=== PATIENT | female | born 1970 | race Caucasian/White ===

== ENCOUNTER → 2024-01-02 11:29 | Outpatient (REF) | payer BC, SELFPAY ==
[2024-01-02 12:36] LABS: ALT (SGPT) 20 U/L (0-35); AST (SGOT) 20 U/L (14-36); Albumin 4.2 g/dl (3.5-5.0); Alkaline Phosphatase 55 U/L (38-126); Blood Urea Nitrogen 14 mg/dl (7-17); Calcium 9.5 mg/dl (8.4-10.2); Carbon Dioxide 29 mmol/L (22-30); Chloride 98 mmol/L (98-107); Glucose 88 mg/dl (70-99); HDL Cholesterol 74 mg/dl; LDL Cholesterol, Calculated 129 mg/dl; Potassium 4.1 mmol/L (3.5-5.1); Sodium 137 mmol/L (135-145); Total Cholesterol 241 mg/dl (50-199); Total Protein 6.9 g/dl (6.3-8.2); Triglyceride 193 mg/dl (10-149); Very Low Density Lipoprotein 38 mg/dl (0-30); eGFR > 60.00
[2024-01-03 11:06] LABS: Glycohemoglobin (HgbA1c) 5.3 % (4.0-5.6)
== END ==
LOC: REG 11:29
PROVIDERS: ATTENDING PHYSICIAN Family Medicine
DX: E78.5 Hyperlipidemia, unspecified (principal); E66.09 Other obesity due to excess calories
CPT/HCPCS: 36415; 80053; 80061; 83036

== ENCOUNTER → 2024-02-17 14:00 | Outpatient (REF) | payer BC, SELFPAY | LOC: RAD 14:00 | PROVIDERS: ATTENDING PHYSICIAN Nurse Practitioner Adult Health; FAMILY PHYSICIAN Family Medicine | DX: N93.9 Abnormal uterine and vaginal bleeding, unspecified (principal) | CPT/HCPCS: 76830; 76856 ==

== ENCOUNTER → 2024-03-06 15:06 | Outpatient (REF) | payer BC, SELFPAY | LOC: RAD 15:06 | PROVIDERS: ATTENDING PHYSICIAN Family Medicine | DX: E78.5 Hyperlipidemia, unspecified (principal); E27.8 Other specified disorders of adrenal gland | CPT/HCPCS: 74160; 75571; Q9967 ==

== ENCOUNTER → 2024-04-09 14:37 | Outpatient (REF) | payer BC, SELFPAY | LOC: WDC 14:37 | PROVIDERS: ATTENDING PHYSICIAN Nurse Practitioner Adult Health; FAMILY PHYSICIAN Family Medicine | DX: Z12.31 Encounter for screening mammogram for malignant neoplasm of breast (principal) | CPT/HCPCS: 77063; 77067 ==

== ENCOUNTER 2025-01-20 17:10 | Inpatient (IN) | payer BC, SELFPAY ==
[2025-01-12 08:49] LABS: Urine Albumin 2+ (Neg - Trace); Urine Bilirubin Negative (Negative); Urine Character Slightly Cloudy (Clear); Urine Color Yellow; Urine Glucose Negative (Negative); Urine Ketone Negative (Negative); Urine Leukocyte Negative (Negative); Urine Nitrite Negative (Negative); Urine Occult Blood 3+ (Negative); Urine Specific Gravity 1.025 (<1.030); Urine Urobilinogen Negative (Neg - 1+)
[2025-01-12 08:56] LABS: Hematocrit 41.4 % (37.0-47.0); Hemoglobin 13.7 g/dL (12.0-16.0); Mean Corp Hgb Conc. 33.1 g/dL (33.0-37.0); Mean Corpuscular Hgb 32.3 pg (27.0-31.0); Mean Corpuscular Volume 97.6 fL (81.0-99.0); Mean Platelet Volume 10.4 fL (7.4-10.4); Platelet Count 276 10^3/uL (130-400); Red Blood Cell Count 4.24 10^6/uL (4.20-5.40); Red Cell Dist. Width 13.4 % (11.5-14.5); White Blood Cell Count 8.7 10^3/uL (4.8-10.8)
[2025-01-12 08:59] LABS: Urine Squamous Cell >30 /LPF (Few)
[2025-01-12 09:00] LABS: Urine Bacteria Moderate (Negative)
[2025-01-12 09:01] LABS: Urine Red Blood Cell 0-2 /HPF (0-2)
[2025-01-12 09:02] LABS: Urine Mucus Few
[2025-01-12 09:44] LABS: ALT (SGPT) 22 U/L (0-35); AST (SGOT) 22 U/L (14-36); Albumin 4.7 g/dl (3.5-5.0); Alkaline Phosphatase 70 U/L (38-126); Blood Urea Nitrogen 17 mg/dl (7-17); Calcium 9.3 mg/dl (8.4-10.2); Carbon Dioxide 30 mmol/L (22-30); Chloride 98 mmol/L (98-107); Glucose 92 mg/dl (70-99); HDL Cholesterol 78 mg/dl; LDL Cholesterol, Calculated 96 mg/dl; Potassium 4.1 mmol/L (3.5-5.1); Sodium 138 mmol/L (135-145); Total Bilirubin 1.1 mg/dl (0.2-1.3); Total Cholesterol 215 mg/dl (50-199); Total Protein 7.1 g/dl (6.3-8.2); Triglyceride 206 mg/dl (10-149); Very Low Density Lipoprotein 41 mg/dl (0-30); eGFR > 60.00
[2025-01-12 09:59] LABS: Vitamin D, 25-OH*** 27.6 ng/mL (30-80)
[2025-01-12 10:12] LABS: TSH 2.31 uIU/ml (0.47-4.68)
[2025-01-12 10:25] LABS: Glycohemoglobin (HgbA1c) 5.4 % (4.0-5.6)
[2025-01-12 14:00] VITALS: BMI 34.5
[2025-01-20] VITALS (16 sets, daily range): BP systolic 133–155; BP diastolic 78–106; BMI 34.5
[2025-01-20] MEDS: TYLENOL 1000 MG PO (11:29)
[2025-01-20] MEDS: NORMOSOL-R/PLASMALYTE-A 1000 IV ×2 (11:29→20:28)
[2025-01-20] MEDS: TRANSDERM-SCOP 1 PATCH TRANSDERM (11:29)
--- NOTE | 2025-01-20 17:06 | W.IMMPOSTOP ---
Surgical Immed Post Op Note
-
Primary Surgeon: Roberto
Assisting Surgeon: LISANDRO Brown
Pre-op Diagnosis: Paraesophageal hernia
Post-op Diagnosis: Paraesophageal hernia
Procedure Performed: Laparoscopic paraesophageal hernia repair and Toupet fundoplication with intra-op EGD
Anesthesia Type: General
Specimen / Cultures: None
Estimated Blood Loss: 23 cc
Complications: None
Operative Findings:
1. Large type III PEH containing 100% of stomach and large fat pad, thin hernia sac
2. > 3 cm esophageal mobilization, R chest pleura violated, bl vagi identified
3. Crural closure with 0 silk (3 posterior and 1 anterior)
4. 2 cm lose floppy fundoplication over 56 fr Bougie
5. Post-repair EGD with no trauma, stricturing and appropriately oriented wrap
[2025-01-20] MEDS: DEMEROL 12.5 MG IV ×2 (17:24→17:36)
[2025-01-20] MEDS: OFIRMEV 100 IV (20:26)
--- NOTE | 2025-01-20 21:47 | TRANSFER ---
Report received from [employer] - received pt in bed at 1910 s/p Lap paraesophageal hernia repair w fundo and intra op EGD, x6 lap sites to abd w glue ZAHIRA. pt denied incisional pain, did c/o gas pains. Drowsy but arousable to verbal. Able to make
all needs known. VS WNL. Bed in lowest position, call dai within reach. Family at the bedside.
[2025-01-20] MEDS: MYLICON 80 MG PO (23:56)
[2025-01-21] MEDS: OFIRMEV 100 IV ×3 (01:57→14:13)
[2025-01-21 02:15] VITALS: BP 145/92
--- NOTE | 2025-01-21 03:44 | PTCARENOTE ---
Pt ambulated in hallway without incident. pt belched multiple times, denied pain. Assessment ongoing.
[2025-01-21 06:36] LABS: Hemoglobin 12.7 g/dL (12.0-16.0); Mean Corp Hgb Conc. 32.6 g/dL (33.0-37.0); Mean Corpuscular Hgb 32.2 pg (27.0-31.0); Mean Platelet Volume 10.3 fL (7.4-10.4); Platelet Count 246 10^3/uL (130-400); Red Blood Cell Count 3.94 10^6/uL (4.20-5.40); Red Cell Dist. Width 13.5 % (11.5-14.5); White Blood Cell Count 13.7 10^3/uL (4.8-10.8)
[2025-01-21 07:00] LABS: Blood Urea Nitrogen 11 mg/dl (7-17); Calcium 8.1 mg/dl (8.4-10.2); Carbon Dioxide 27 mmol/L (22-30); Chloride 99 mmol/L (98-107); Estimated Creatinine Clearance 123 ml/min; Glucose 94 mg/dl (70-99); Potassium 4.2 mmol/L (3.5-5.1); Sodium 135 mmol/L (135-145); eGFR > 60.00
[2025-01-21] MEDS: NORMOSOL-R/PLASMALYTE-A 1000 IV ×2 (07:01→13:31)
[2025-01-21 07:20] VITALS: BP 141/97
--- NOTE | 2025-01-21 08:08 | W.PN.GS2 ---
Today's Communication / Plan
-
-- Clears ADAT to fulls
-- Maintain IVF for today, consider decrease pending PO intake
-- Pain control: Tylenol, Toradol, liquid Oxycodone, IV Dilaudid PRN
-- Home medications
-- DVT: Lovenox
Assessment / Plan
-
Patient is a 54 yo F POD#1 s/p laparoscopic paraesophageal hernia repair with Toupet fundoplication and intra-operative EGD
AVSS, weaned off supplemental O2
Labs reviewed, unremarkable
EKG overnight reviewed
Chest and back discomfort post PEH repair, especially given the significant size of her hernia, is not unexpected. Less likely a cardiopulmonary source, continue to monitor and further workup as needed.
Apical RIGHT capnothorax expected given entry into the chest operatively, patient asymptomatic and weaned off supplemental O2 this should reabsorb quickly (discussed with patient)
No clinical reports of dysphagia. Plan to advance diet throughout the day.
-- Clears ADAT to fulls
-- Maintain IVF for now, consider decrease pending PO intake
-- Pain control: Tylenol, Toradol, liquid Oxycodone, IV Dilaudid PRN
-- Home medications
-- OOB/ambulate, SCDs at all times given h/o DVT
-- DVT: Lovenox
-- GI: None needed given fundoplication
Subjective Data
-
Date of Service: January 21, 2025
Reports chest discomfort and pain radiating to the back. Denies any worsening SOB. Denies any nausea or vomiting, no symptoms of dysphagia. No abdominal discomfort. Voiding. Ambulating.
Objective Data
-
Intake and Output
01/20/25 01/21/25 01/22/25
06:59 06:59 06:59
Intake Total 1435 / 1435
Output Total 200 / 200
Balance 1235 / 1235
Intake:
Oral fluids 60 / 60
IV fluids (Total) 1175 / 1175
Normosol 200 / 200
IV piggybacks 200 / 200
Output:
Urine, Marcano 200 / 200
Other:
Number of approximated MODERATE 3
amounts of urine
Vital Signs
Temp Pulse Resp BP Pulse Ox
98.1 F 89 18 141/97 97
01/21/25 07:20 01/21/25 07:20 01/21/25 07:20 01/21/25 07:20 01/21/25 07:20
Lab Results
01/21/25 05:18
01/21/25 05:18
Calcium 8.1 mg/dl (8.4-10.2) L 01/21/25 05:18
Total Bilirubin 1.1 mg/dl (0.2-1.3) 01/12/25 07:51
AST 22 U/L (14-36) 01/12/25 07:51
ALT 22 U/L (0-35) 01/12/25 07:51
Alkaline Phosphatase 70 U/L (38-126) 01/12/25 07:51
Total Protein 7.1 g/dl (6.3-8.2) 01/12/25 07:51
Albumin 4.7 g/dl (3.5-5.0) 01/12/25 07:51
Physical Exam
-
Gen: NAD
Abd: soft, mild tenderness, ND, non-peritoneal, incisions c/d/i - no erythema, ecchymosis or drainage
Patient has a marcano catheter: No
Patient has a central line: No
[2025-01-21] MEDS: ORETIC 12.5 MG PO (08:56)
[2025-01-21] MEDS: ZESTRIL 20 MG PO (08:56)
[2025-01-21] MEDS: DILAUDID 0.5 MG IV ×2 (08:56→20:58)
[2025-01-21 12:32] VITALS: BP 128/81
[2025-01-21] MEDS: TORADOL 15 MG IV (13:31)
[2025-01-21 15:25] VITALS: BP 124/79
[2025-01-21] MEDS: COLACE 100 MG PO (17:39)
[2025-01-21] MEDS: LOVENOX 40 MG SC (17:39)
[2025-01-21 23:38] VITALS: BP 123/81
[2025-01-22] MEDS: TORADOL 15 MG IV (00:01)
[2025-01-22] MEDS: NORMOSOL-R/PLASMALYTE-A 1000 IV (03:46)
[2025-01-22] MEDS: DILAUDID 0.5 MG IV ×6 (04:58→23:12)
[2025-01-22 06:37] LABS: Hematocrit 37.3 % (37.0-47.0); Hemoglobin 12.3 g/dL (12.0-16.0); Mean Corpuscular Hgb 32.4 pg (27.0-31.0); Mean Corpuscular Volume 98.2 fL (81.0-99.0); Mean Platelet Volume 10.4 fL (7.4-10.4); Platelet Count 221 10^3/uL (130-400); Red Cell Dist. Width 13.9 % (11.5-14.5); White Blood Cell Count 9.7 10^3/uL (4.8-10.8)
[2025-01-22 07:11] VITALS: BP 145/97
--- NOTE | 2025-01-22 07:16 | W.PN.GS2 ---
Today's Communication / Plan
-
-- Soft food diet
-- Resume Eliquis on DC
-- DC today
Assessment / Plan
-
Patient is a 54 yo F POD#2 s/p laparoscopic paraesophageal hernia repair with Toupet fundoplication and intra-operative EGD
AVSS
Labs reviewed, unremarkable
No concerns. DC today.
-- Soft diet, dietary education provided
-- HLIV
-- Pain control: Tylenol, Toradol, liquid Oxycodone, IV Dilaudid PRN
-- Home medications
-- OOB/ambulate, SCDs at all times given h/o DVT
-- DVT: Lovenox, resume Eliquis on DC tonight
-- GI: None needed given fundoplication
Subjective Data
-
Date of Service: January 22, 2025
No issues or complaints. No reports of dysphagia. No nausea or vomiting. Chest and shoulder pain has significantly improved and basically resolved. Ambulating. Voiding. Afebrile.
Objective Data
-
Intake and Output
01/21/25 01/22/25 01/23/25
06:59 06:59 06:59
Intake Total 1435 / 1435 2160 / 2160
Output Total 200 / 200
Balance 1235 / 1235 2160 / 2160
Intake:
Oral fluids 60 / 60 960 / 960
IV fluids (Total) 1175 / 1175 1200 / 1200
Normosol 200 / 200
IV piggybacks 200 / 200
Output:
Urine, Marcano 200 / 200
Other:
Number of approximated MODERATE 3 3
amounts of urine
Vital Signs
Temp Pulse Resp BP Pulse Ox
97.9 F 67 18 123/81 93
01/21/25 23:38 01/21/25 23:38 01/21/25 23:38 01/21/25 23:38 01/22/25 01:35
Lab Results
01/22/25 05:41
Calcium 8.1 mg/dl (8.4-10.2) L 01/21/25 05:18
Total Bilirubin 1.1 mg/dl (0.2-1.3) 01/12/25 07:51
AST 22 U/L (14-36) 01/12/25 07:51
ALT 22 U/L (0-35) 01/12/25 07:51
Alkaline Phosphatase 70 U/L (38-126) 01/12/25 07:51
Total Protein 7.1 g/dl (6.3-8.2) 01/12/25 07:51
Albumin 4.7 g/dl (3.5-5.0) 01/12/25 07:51
Physical Exam
-
Gen: NAD
AbdZ: soft, NT/ND, non-peritoneal, incisions c/d/i - no erythema, ecchymosis or drainage
Patient has a marcano catheter: No
Patient has a central line: No
[2025-01-22 07:38] LABS: Blood Urea Nitrogen 9 mg/dl (7-17); Calcium 8.2 mg/dl (8.4-10.2); Carbon Dioxide 26 mmol/L (22-30); Chloride 102 mmol/L (98-107); Estimated Creatinine Clearance 123 ml/min; Glucose 84 mg/dl (70-99); Sodium 134 mmol/L (135-145); eGFR > 60.00
[2025-01-22 08:40] VITALS: BP 169/114
[2025-01-22] MEDS: ATIVAN 0.5 MG IV (09:00)
[2025-01-22] MEDS: NSS (PRESERVATIVE FREE) 0.25 ML IV (09:01)
[2025-01-22] MEDS: ORETIC 12.5 MG PO (09:07)
[2025-01-22] MEDS: ZESTRIL 20 MG PO (09:08)
--- NOTE | 2025-01-22 10:56 | W.PN.SURGUPD ---
Surgical Update
Surgical Update
S/B: Patient with significant pain into her right chest up into the shoulder earlier this am.
A: EKG without change, NSR. HTN with episode. Suspect esophageal spasm. IV Ativan given at time of episode with complete relief in symptoms.
P: Continue with dietary advancement to soft diet. Levsin prn for further symptoms. Tentative d/c later today vs tomorrow pending diet tolerance and pain control.
[2025-01-22] MEDS: LEVSIN 0.125 MG PO (12:36)
--- NOTE | 2025-01-22 13:43 | CM ---
Met with pt at bedside
Pt reports she lives with her in a 2 story home; 1 step to enter, 15 steps to 2nd fl. + 1/2 bath on FF
Independent, employed, drives
DME - none
SNF/HH - denies past hx
Has ride at d/c
PCP - Joshua Goldberg
Pharm - [facility] in [place]
Plan - anticipate home no needs
[2025-01-22 15:12] VITALS: BP 151/94
[2025-01-22] MEDS: D5/0.45%NSS with KCL 20 MEQ 1000 IV (16:58)
[2025-01-22] MEDS: COLACE 100 MG PO (17:44)
[2025-01-22 19:00] VITALS: BP 150/102
[2025-01-22] MEDS: ELIQUIS 2.5 MG PO (19:47)
[2025-01-22 23:00] VITALS: BP 142/88
[2025-01-23] MEDS: TORADOL 15 MG IV ×2 (01:50→07:42)
[2025-01-23] MEDS: D5/0.45%NSS with KCL 20 MEQ 1000 IV (05:04)
[2025-01-23] MEDS: LEVSIN 0.125 MG PO (05:05)
[2025-01-23 07:25] VITALS: BP 127/89
[2025-01-23] MEDS: ORETIC 12.5 MG PO (07:42)
[2025-01-23] MEDS: ELIQUIS 2.5 MG PO (07:42)
[2025-01-23] MEDS: ZESTRIL 20 MG PO (07:44)
[2025-01-23 07:49] LABS: Hematocrit 40.9 % (37.0-47.0); Hemoglobin 13.1 g/dL (12.0-16.0); Mean Corpuscular Hgb 31.5 pg (27.0-31.0); Mean Corpuscular Volume 98.3 fL (81.0-99.0); Mean Platelet Volume 10.2 fL (7.4-10.4); Platelet Count 244 10^3/uL (130-400); Red Blood Cell Count 4.16 10^6/uL (4.20-5.40); Red Cell Dist. Width 13.7 % (11.5-14.5); White Blood Cell Count 8.1 10^3/uL (4.8-10.8)
--- NOTE | 2025-01-23 11:11 | W.PN.GS2 ---
Today's Communication / Plan
-
Dispo planning
Assessment / Plan
-
Patient is a 54 yo F POD#3 s/p laparoscopic paraesophageal hernia repair with Toupet fundoplication and intra-operative EGD
AVSS
Labs reviewed, unremarkable
Pain yesterday up into right shoulder with tachycardia during episodes, now resolved
Back on Eliquis with no bleeding noted, h/h stable
No concerns. DC today.
-- Soft diet, dietary education provided
-- HLIV
-- Pain contro
-- Home medications
-- OOB/ambulate, SCDs at all times given h/o DVT
D/C to home
Subjective Data
-
Date of Service: January 23, 2025
Patient seen and examined at bedside with Dr. Chapa. Tolerating diet. Denies n/v. Pain much improved.
Objective Data
-
Intake and Output
01/22/25 01/23/25 01/24/25
06:59 06:59 06:59
Intake Total 2160 / 2160 2580 / 2580
Balance 2160 / 2160 2580 / 2580
Intake:
Oral fluids 960 / 960 1680 / 1680
IV fluids (Total) 1200 / 1200 900 / 900
Other:
Number of approximated MODERATE 3 3
amounts of urine
Vital Signs
Temp Pulse Resp BP Pulse Ox
98.2 F 79 16 127/89 93
01/23/25 07:25 01/23/25 07:44 01/23/25 07:25 01/23/25 07:44 01/23/25 07:25
Lab Results
01/23/25 07:17
01/22/25 05:41
Calcium 8.2 mg/dl (8.4-10.2) L 01/22/25 05:41
Total Bilirubin 1.1 mg/dl (0.2-1.3) 01/12/25 07:51
AST 22 U/L (14-36) 01/12/25 07:51
ALT 22 U/L (0-35) 01/12/25 07:51
Alkaline Phosphatase 70 U/L (38-126) 01/12/25 07:51
Total Protein 7.1 g/dl (6.3-8.2) 01/12/25 07:51
Albumin 4.7 g/dl (3.5-5.0) 01/12/25 07:51
Physical Exam
-
Gen: NAD
AbdZ: soft, NT/ND, non-peritoneal, incisions c/d/i - no erythema, ecchymosis or drainage
Patient has a marcano catheter: No
Patient has a central line: No
[2025-01-23 12:02] VITALS: BP 148/96
--- NOTE | 2025-01-23 12:05 | CM ---
Pt for discharge today
Pt reports has ride home
Plan - home no needs
--- NOTE | 2025-01-23 14:27 | W.DCSUMMARY ---
Discharge Summary
Discharge Data
Date of Admission: 01/20/25
Date of Discharge: 01/23/25
-
Pending Results: No
Hospital Course
54 yo female who presented for management of a paraesophageal hernia with laparoscopic hernia repair and Toupet fundoplication and intraoperative EGD. She tolerated the procedure well and diet was able to be advanced to soft prior to discharge which
was well tolerated. She was discharged to home once pain was able to be controlled well with oral analgesics. Outpatient follow up planned in the coming weeks.
Discharge Plan
-
Patient Disposition: Home (Routine Discharge)
Discharge Diagnosis/Procedures: Laparoscopic paraesophageal hernia repair with Toupet fundoplication and EGD
Condition: Good
Diet: Other diet
Additional Diets: Follow a soft food diet. Eat small frequent meals. Chew food thoroughly. Avoid large cuts of meat, breads, or dry pastas. Avoid drinking with a straw. Avoid carbonated beverages.
Activity: No strenuous activity
Driving Restrictions: No driving if too sore or taking narcotics.
Bathing Restrictions: OK to Shower
Wound Care: Keep incisions clean and dry. Glue will flake off in 2 to 3 weeks. Stitches will dissolve. Use ice to the abdomen to reduce any bruising or swelling.
Activity Restrictions/Additional Instructions:
Call for fevers (>100.5), nausea or vomiting, worsening issues with swallowing, chest or abdominal pain, calf pain or shortness of breath
Referrals:
Joshua Goldberg DO [Family Provider] -
Santiago Mejia MD [Active] - in three to four weeks
Prescriptions:
New
acetaminophen 325 mg tablet
650 mg PO Q4HPRN PRN (Reason: mild pain) Qty: 1 0RF
ibuprofen 200 mg tablet
400 - 600 mg PO Q6HPRN PRN (Reason: moderate pain) Qty: 1 0RF
oxycodone 5 mg tablet
5 mg PO Q4HPRN PRN (Reason: breakthrough/severe pain) Qty: 10 0RF
hyoscyamine sulfate [Oscimin] 0.125 mg tablet
0.125 mg PO QID PRN (Reason: pain shoulders/chest) Qty: 20 0RF
Continued
lisinopril 20 mg Tablet
20 mg PO DAILY
Glucosamine Complex-MSM Capsule
3 cap PO DAILY
hydrochlorothiazide 12.5 mg Tablet
12.5 mg PO DAILY
cholecalciferol (vitamin D3) [Vitamin D3] 50 mcg (2,000 unit) Tablet
100 mcg PO DAILY
omega 3-qwi-twn-fish oil [Fish Oil] 1,000 (120-180) mg Capsule
1 cap PO DAILY
Eliquis 2.5 mg Tablet
2.5 mg PO BID
Probiotic
1 cap PO DAILY
Discharge Orders:
Discharge Patient (As Directed); Ordered 01/23/25
Ordered By: Melony Oleary
Discharge Date and Time
Discharge Date/Time: 01/23/25 13:19
Print Language: CITIZEN OF [place]
== END 2025-01-23 13:19 | disposition home or self-care (01) | DRG 327 ==
LOC: 2 SOUTH 17:10
PROVIDERS: Registered Nurse; ADMITTING PHYSICIAN Surgery; FAMILY PHYSICIAN Family Medicine
PROC: 0DJ08ZZ Inspection of Upper Intestinal Tract, Via Natural or Artificial Opening Endoscopic (ICD-10-PCS; 2025-01-22)
PROC: 0DV44ZZ Restriction of Esophagogastric Junction, Percutaneous Endoscopic Approach (ICD-10-PCS; 2025-01-22)
PROC: 0BQT4ZZ Repair Diaphragm, Percutaneous Endoscopic Approach (ICD-10-PCS; 2025-01-22)
DX: K44.9 Diaphragmatic hernia without obstruction or gangrene (principal); J95.71 Accidental puncture and laceration of a respiratory system organ or structure during a respiratory system procedure; E66.9 Obesity, unspecified; Z68.34 Body mass index [BMI] 34.0-34.9, adult; Z79.01 Long term (current) use of anticoagulants; Z88.0 Allergy status to penicillin; Y83.8 Other surgical procedures as the cause of abnormal reaction of the patient, or of later complication, without mention of misadventure at the time of the procedure
CPT/HCPCS: 36415; 71045; 80048; 80053; 80061; 81003; 81015; 82306; 83036; 84443; 85027; 93005

== ENCOUNTER → 2025-04-15 14:51 | Outpatient (REF) | payer BC, SELFPAY | LOC: WDC 14:51 | PROVIDERS: ATTENDING PHYSICIAN Nurse Practitioner Adult Health; FAMILY PHYSICIAN Family Medicine | DX: Z12.31 Encounter for screening mammogram for malignant neoplasm of breast (principal) | CPT/HCPCS: 77063; 77067 ==

== ENCOUNTER → 2025-04-15 15:35 | Outpatient (REF) | payer BC, SELFPAY | LOC: RAD 15:35 | PROVIDERS: ATTENDING PHYSICIAN Family Medicine | DX: M25.551 Pain in right hip (principal); M25.552 Pain in left hip | CPT/HCPCS: 73523 ==

== ENCOUNTER → 2025-08-06 10:18 | Outpatient (REF) | payer BC, SELFPAY ==
[2025-08-06 11:24] LABS: Hematocrit 42.3 % (37.0-47.0); Hemoglobin 13.7 g/dL (12.0-16.0); Mean Corp Hgb Conc. 32.4 g/dL (33.0-37.0); Mean Corpuscular Volume 97.7 fL (81.0-99.0); Nucleated Red Blood Cells % 0 %; Platelet Count 255 10^3/uL (130-400); Red Cell Dist. Width 13.4 % (11.5-14.5)
[2025-08-06 11:37] LABS: ALT (SGPT) 34 U/L (0-35); AST (SGOT) 27 U/L (14-36); Albumin 4.7 g/dl (3.5-5.0); Alkaline Phosphatase 60 U/L (38-126); Total Protein 7.5 g/dl (6.3-8.2)
== END ==
LOC: REG 10:18
PROVIDERS: ATTENDING PHYSICIAN Nurse Practitioner; FAMILY PHYSICIAN Family Medicine
DX: K76.0 Fatty (change of) liver, not elsewhere classified (principal); D64.9 Anemia, unspecified
CPT/HCPCS: 36415; 80076; 85025

== ENCOUNTER → 2025-10-15 07:47 | Outpatient (REF) | payer BC, SELFPAY ==
[2025-10-15 09:33] LABS: Urine Character Clear (Clear)
[2025-10-15 09:37] LABS: Hematocrit 44.9 % (37.0-47.0); Hemoglobin 14.6 g/dL (12.0-16.0); Mean Corp Hgb Conc. 32.5 g/dL (33.0-37.0); Mean Corpuscular Volume 98.5 fL (81.0-99.0); Nucleated Red Blood Cells % 0 %; Platelet Count 274 10^3/uL (130-400); Red Cell Dist. Width 13.5 % (11.5-14.5)
[2025-10-15 09:41] LABS: Urine Squamous Cell 21-25 /LPF (Few)
[2025-10-15 10:14] LABS: ALT (SGPT) 39 U/L (0-35); AST (SGOT) 30 U/L (14-36); Albumin 4.6 g/dl (3.5-5.0); Alkaline Phosphatase 55 U/L (38-126); Blood Urea Nitrogen 29 mg/dl (7-17); Calcium 9.7 mg/dl (8.4-10.2); Carbon Dioxide 29 mmol/L (22-30); Chloride 101 mmol/L (98-107); Glucose 93 mg/dl (70-99); HDL Cholesterol 68 mg/dl; LDL Cholesterol, Calculated 149 mg/dl; Potassium 4.1 mmol/L (3.5-5.1); Sodium 141 mmol/L (135-145); Total Protein 7.5 g/dl (6.3-8.2); Very Low Density Lipoprotein 31 mg/dl (0-30); eGFR > 60.00
[2025-10-15 10:30] LABS: Vitamin D, 25-OH*** 34.7 ng/mL (30-80)
[2025-10-15 10:44] LABS: TSH 1.32 uIU/ml (0.47-4.68)
[2025-10-15 11:38] LABS: Glycohemoglobin (HgbA1c) 5.5 % (4.0-5.9)
== END ==
LOC: REG 07:47
PROVIDERS: ATTENDING PHYSICIAN Family Medicine
DX: Z01.818 Encounter for other preprocedural examination (principal); K44.9 Diaphragmatic hernia without obstruction or gangrene; I10 Essential (primary) hypertension; M25.551 Pain in right hip; M25.552 Pain in left hip; E66.09 Other obesity due to excess calories; Z68.33 Body mass index [BMI] 33.0-33.9, adult; E66.811 Obesity, class 1; Z71.3 Dietary counseling and surveillance
CPT/HCPCS: 36415; 80053; 80061; 81003; 81015; 82306; 83036; 84443; 85025